=== PATIENT | male | born 1945 | race Two or more races ===

== ENCOUNTER 2024-04-24 15:19 | Inpatient (IN) | payer MEDICARE, OTHER ==
[~2024-04-24] VITALS: Ht 175.3 cm; Wt 73.9 kg
[2024-04-24 16:00] VITALS: BP 108/67; TEMP 98.1; O2SAT 95
[2024-04-24] MEDS ORDERED: CYCL5.5D3 OP (18:02)
[2024-04-24] MEDS ORDERED: DICL100G31 TP (18:02)
[2024-04-24] MEDS ORDERED: IBUP-1953 PO (18:02)
[2024-04-24] MEDS ORDERED: OLME1TAB16 PO (18:02)
[2024-04-24] MEDS ORDERED: MEMA10TA56 PO (18:02)
[2024-04-24] MEDS ORDERED: LIDO1ADH23 TP (18:02)
[2024-04-24] MEDS ORDERED: ERGO500040 PO ×2 (18:02)
[2024-04-24] MEDS ORDERED: AMLO-212 PO (18:02)
[2024-04-24] MEDS ORDERED: AMIO100T4 PO (18:02)
[2024-04-24] MEDS ORDERED: ATOR40TA PO (18:02)
[2024-04-24] MEDS ORDERED: DUTA0.5C37 PO (18:02)
[2024-04-24] MEDS ORDERED: BENA10TA74 PO (18:02)
[2024-04-24] MEDS ORDERED: TAMS-3 PO (18:02)
[2024-04-24] MEDS ORDERED: APIX5TAB4 PO (18:02)
[2024-04-24] MEDS ORDERED: ASPI-612 PO (18:02)
[2024-04-24] MEDS ORDERED: ERGOCALCIFEROL 50,000 UNIT CAPSULE PO SCH (19:00)
[2024-04-24] MEDS ORDERED: AMIODARONE HCL 200 MG TABLET PO SCH (20:30)
[2024-04-24] MEDS ORDERED: ACETAMINOPHEN 325 MG TABLET PO PRN (20:30)
[2024-04-24] MEDS ORDERED: REMEDY ESSENTIAL ZINC PASTE 113 GM TOP PRN (20:30)
[2024-04-24 20:51] VITALS: BP 114/74; TEMP 98.2; O2SAT 95
[2024-04-24] MEDS ORDERED: INSULIN REGULAR, HUMAN 1000 UNIT/10 ML VIAL SQ SCH (21:00)
[2024-04-24] MEDS: LORAZEPAM 1 MG TABLET PO ONE (23:08)
[2024-04-24] MEDS: ATORVASTATIN 40 MG TABLET PO SCH (23:08)
[2024-04-24] MEDS: IBUPROFEN 400 MG TABLET PO SCH (23:08)
[2024-04-25 06:14] VITALS: BP 134/71; TEMP 97.6; O2SAT 97
[2024-04-25] MEDS ORDERED: BLOOD SUGAR DIAGNOSTIC 1 EACH STRIP VI SCH ×2 (07:30→07:45)
[2024-04-25] MEDS ORDERED: DEXTROSE 50% 50 ML DISP.SYRIN IV PRN (07:30)
[2024-04-25] MEDS: BLOOD SUGAR DIAGNOSTIC 1 EACH STRIP VI SCH (07:38)
[2024-04-25] MEDS ORDERED: INSULIN REGULAR, HUMAN 1000 UNIT/10 ML VIAL SQ SCH ×2 (07:45→21:00)
[2024-04-25] MEDS: INSULIN REGULAR, HUMAN 1000 UNIT/10 ML VIAL SQ PRN (08:05)
[2024-04-25 08:08] LABS: BASOPHILS # (AUTO) 0.1 K/UL (0.0-0.2); BASOPHILS % (AUTO) 0.7 % (0.0-2.0); EOSINOPHILS # (AUTO) 0.2 K/uL (0.0-0.7); EOSINOPHILS % (AUTO) 3.1 % (0.0-7.0); HEMATOCRIT 39.7 % (36.7-47.1); HEMOGLOBIN 13.4 g/dL (12.5-16.3); LYMPHOCYTES # (AUTO) 2.2 K/uL (0.8-4.8); LYMPHOCYTES % (AUTO) 27.7 % (20.5-51.5); MEAN CORPUSCULAR HEMOGLOBIN 31.2 uug (23.8-33.4); MEAN CORPUSCULAR HGB CONC 34 g/dL (32.5-36.3); MEAN CORPUSCULAR VOLUME 92.7 fL (73.0-96.2); MONOCYTES # (AUTO) 0.7 K/uL (0.1-1.30); MONOCYTES % (AUTO) 8.3 % (0.0-11.0); NEUTROPHILS # (AUTO) 4.9 K/uL (1.8-8.9); NEUTROPHILS % (AUTO) 60.2 % (38.5-71.5); PLATELET COUNT (AUTO) 285 K/uL (152-348); RED BLOOD CELL COUNT(AUTO) 4.28 MIL/uL (4.06-5.63)
[2024-04-25 08:09] LABS: DIFFERENTIAL COMMENT 1
[2024-04-25 08:20] LABS: CALCIUM 8.9 mg/dL (8.5-10.1); CARBON DIOXIDE 29 mmol/L (21-32); CHLORIDE 101 mmol/L (98-107); GLUCOSE 154 mg/dL (74-106); PHOSPHOROUS 3.6 mg/dL (2.5-4.9); POTASSIUM 3.6 mmol/L (3.5-5.1); SODIUM SERUM 138 mmol/L (136-145); UREA NITROGEN, BLOOD 25 mg/dL (7-18)
[2024-04-25] MEDS ORDERED: LOSARTAN POTASSIUM 50 MG TABLET PO SCH (09:00)
[2024-04-25] MEDS ORDERED: APIXABAN 2.5 MG TABLET PO SCH (09:00)
[2024-04-25] MEDS: APIXABAN 5 MG TABLET PO SCH (09:58)
[2024-04-25] MEDS: DUTASTERIDE 0.5 MG CAPSULE PO SCH (09:59)
[2024-04-25] MEDS: ASPIRIN 325 MG TABLET PO SCH (09:59)
[2024-04-25] MEDS: TAMSULOSIN HCL 0.4 MG CAP.SR.24H PO SCH (10:00)
[2024-04-25] MEDS: AMIODARONE HCL 200 MG TABLET PO SCH (10:00)
[2024-04-25] MEDS: BENAZEPRIL HCL 10 MG TABLET PO SCH (10:00)
[2024-04-25] MEDS: MEMANTINE HCL 10 MG TABLET PO SCH (10:01)
[2024-04-25] MEDS: AMLODIPINE 5 MG TABLET PO SCH (10:01)
[2024-04-25] MEDS ORDERED: ACETAMINOPHEN 325 MG TABLET PO PRN (13:30)
[2024-04-25] MEDS ORDERED: IBUPROFEN 400 MG TABLET PO PRN (13:30)
[2024-04-25 15:32] VITALS: BP 111/57; TEMP 97.6; O2SAT 96
[2024-04-25 20:07] VITALS: BP 116/74; TEMP 98.1; O2SAT 94
[2024-04-26 06:59] VITALS: BP 131/79; TEMP 98; O2SAT 95
[2024-04-26] MEDS: HYDROCHLOROTHIAZIDE PO SCH (09:00)
[2024-04-26] MEDS: OLMESARTAN PO SCH (09:00)
[2024-04-26] MEDS ORDERED: RESTASIS 0.05% EACHEYE SCH (09:00)
[2024-04-26] MEDS: RESTASIS 0.05% EACHEYE SCH ×2 (09:12→18:04)
[2024-04-26 16:00] VITALS: BP 127/67; TEMP 98.1; O2SAT 96
[2024-04-26] MEDS: MEMANTINE 14 MG PO SCH (18:06)
[2024-04-26 20:07] VITALS: BP 113/58; TEMP 98.4; O2SAT 95
[2024-04-27 05:25] VITALS: BP 132/74; TEMP 98.3; O2SAT 95
[2024-04-27] MEDS: ERGOCALCIFEROL 50,000 UNIT CAPSULE PO SCH (09:33)
[2024-04-27 15:27] VITALS: BP 112/62; TEMP 97.7; O2SAT 95
[2024-04-27 20:00] VITALS: BP 115/69; TEMP 97.4; O2SAT 95
[2024-04-28] MEDS: GLUCERNA SHAKE 237 ML CAN PO SCH (09:10)
[2024-04-28 16:00] VITALS: BP 105/68; TEMP 98.4; O2SAT 95
[2024-04-28 20:00] VITALS: BP 108/69; TEMP 98.1; O2SAT 96
[2024-04-29 07:02] VITALS: BP 112/73; TEMP 97.3; O2SAT 96
[2024-04-29 16:20] VITALS: BP 108/69; TEMP 97.9; O2SAT 95
[2024-04-29] MEDS: BENAZEPRIL HCL 10 MG TABLET PO SCH (18:00)
[2024-04-29 20:01] VITALS: BP 115/71; TEMP 98.2; O2SAT 96
[2024-04-30 05:11] VITALS: BP 129/76; TEMP 98.3; O2SAT 97
[2024-04-30 06:52] LABS: BASOPHILS % (AUTO) 0.4 % (0.0-2.0); EOSINOPHILS # (AUTO) 0.1 K/uL (0.0-0.7); EOSINOPHILS % (AUTO) 0.9 % (0.0-7.0); HEMATOCRIT 37.7 % (36.7-47.1); LYMPHOCYTES # (AUTO) 2.6 K/uL (0.8-4.8); MEAN CORPUSCULAR HEMOGLOBIN 31.4 uug (23.8-33.4); MEAN CORPUSCULAR HGB CONC 35 g/dL (32.5-36.3); MEAN CORPUSCULAR VOLUME 91.2 fL (73.0-96.2); MONOCYTES % (AUTO) 9.5 % (0.0-11.0); NEUTROPHILS # (AUTO) 6.7 K/uL (1.8-8.9); NEUTROPHILS % (AUTO) 64.2 % (38.5-71.5); PLATELET COUNT (AUTO) 379 K/uL (152-348); RED BLOOD CELL COUNT(AUTO) 4.13 MIL/uL (4.06-5.63); WHITE BLOOD COUNT (AUTO) 10.5 K/uL (3.6-10.2)
[2024-04-30 06:57] LABS: CALCIUM 8.6 mg/dL (8.5-10.1); CARBON DIOXIDE 29 mmol/L (21-32); CHLORIDE 103 mmol/L (98-107); CREATININE 0.9 mg/dL (0.6-1.3); GLUCOSE 121 mg/dL (74-106); POTASSIUM 3.9 mmol/L (3.5-5.1); SODIUM SERUM 139 mmol/L (136-145); UREA NITROGEN, BLOOD 23 mg/dL (7-18)
[2024-04-30] MEDS: ASPIRIN EC 81 MG TABLET.DR PO SCH (08:53)
[2024-04-30 16:13] VITALS: BP 98/52; TEMP 98.6; O2SAT 97
[2024-04-30 19:37] VITALS: BP 105/66; TEMP 98.5; O2SAT 96
[2024-05-01 06:10] VITALS: BP 111/69; TEMP 98.1; O2SAT 96
[2024-05-01 07:30] LABS: BASOPHILS # (AUTO) 0.1 K/UL (0.0-0.2); BASOPHILS % (AUTO) 1.2 % (0.0-2.0); EOSINOPHILS # (AUTO) 0.1 K/uL (0.0-0.7); EOSINOPHILS % (AUTO) 1.2 % (0.0-7.0); HEMATOCRIT 37.1 % (36.7-47.1); HEMOGLOBIN 12.7 g/dL (12.5-16.3); LYMPHOCYTES # (AUTO) 2.5 K/uL (0.8-4.8); LYMPHOCYTES % (AUTO) 22.9 % (20.5-51.5); MEAN CORPUSCULAR HEMOGLOBIN 31.5 uug (23.8-33.4); MEAN CORPUSCULAR HGB CONC 34 g/dL (32.5-36.3); MEAN CORPUSCULAR VOLUME 92.5 fL (73.0-96.2); MONOCYTES % (AUTO) 9.4 % (0.0-11.0); NEUTROPHILS # (AUTO) 7.3 K/uL (1.8-8.9); NEUTROPHILS % (AUTO) 65.3 % (38.5-71.5); PLATELET COUNT (AUTO) 380 K/uL (152-348); RED BLOOD CELL COUNT(AUTO) 4.01 MIL/uL (4.06-5.63); WHITE BLOOD COUNT (AUTO) 11.1 K/uL (3.6-10.2)
[2024-05-01 07:37] VITALS: BP 112/83; TEMP 98.1; O2SAT 97
[2024-05-01 07:42] LABS: DIFFERENTIAL COMMENT 1
[2024-05-01 16:00] VITALS: BP 107/53; TEMP 98.4; O2SAT 96
[2024-05-01 20:00] VITALS: BP 122/72; TEMP 97.1; O2SAT 95
[2024-05-01] MEDS: LORAZEPAM 0.5 MG TABLET PO PRN (22:23)
[2024-05-02 06:00] VITALS: BP 107/68; TEMP 97.9; O2SAT 96
[2024-05-02 07:18] LABS: BASOPHILS # (AUTO) 0.1 K/UL (0.0-0.2); BASOPHILS % (AUTO) 0.7 % (0.0-2.0); EOSINOPHILS # (AUTO) 0.1 K/uL (0.0-0.7); EOSINOPHILS % (AUTO) 1.1 % (0.0-7.0); HEMATOCRIT 37.2 % (36.7-47.1); HEMOGLOBIN 12.9 g/dL (12.5-16.3); LYMPHOCYTES # (AUTO) 2.4 K/uL (0.8-4.8); LYMPHOCYTES % (AUTO) 23.4 % (20.5-51.5); MEAN CORPUSCULAR HEMOGLOBIN 31.7 uug (23.8-33.4); MEAN CORPUSCULAR HGB CONC 35 g/dL (32.5-36.3); MEAN CORPUSCULAR VOLUME 91.7 fL (73.0-96.2); MONOCYTES # (AUTO) 0.8 K/uL (0.1-1.30); MONOCYTES % (AUTO) 8.1 % (0.0-11.0); NEUTROPHILS # (AUTO) 6.8 K/uL (1.8-8.9); NEUTROPHILS % (AUTO) 66.7 % (38.5-71.5); PLATELET COUNT (AUTO) 397 K/uL (152-348); RED BLOOD CELL COUNT(AUTO) 4.06 MIL/uL (4.06-5.63); RED CELL DISTRIBUTION WIDTH 12.7 % (12.1-16.2); WHITE BLOOD COUNT (AUTO) 10.2 K/uL (3.6-10.2)
[2024-05-02 07:23] LABS: DIFFERENTIAL COMMENT 1
[2024-05-02 08:00] LABS: THYROID STIMULATING HORMONE 3.107 mIU/mL (0.358-3.740)
[2024-05-02 08:12] LABS: ALANINE AMINOTRANSFERASE 41 U/L (16-63); ALKALINE PHOSPHATASE 107 U/L (50-136); ASPARTATE AMINOTRANSFERASE 14 U/L (15-37); BILIRUBIN,TOTAL 0.8 mg/dL (0.2-1.0); CALCIUM 8.7 mg/dL (8.5-10.1); CARBON DIOXIDE 32 mmol/L (21-32); CHLORIDE 101 mmol/L (98-107); CHOLESTEROL 135 mg/dL (<200); CREATININE 1.1 mg/dL (0.6-1.3); GLUCOSE 143 mg/dL (74-106); HDL CHOLESTEROL 49 mg/dL (40-60); PHOSPHOROUS 3.5 mg/dL (2.5-4.9); POTASSIUM 3.9 mmol/L (3.5-5.1); SODIUM SERUM 138 mmol/L (136-145); TOTAL PROTEIN, SERUM 6.5 g/dL (6.4-8.2); TRIGLYCERIDES 69 MG/DL (30-150); UREA NITROGEN, BLOOD 25 mg/dL (7-18)
[2024-05-02 16:29] VITALS: BP 98/58; TEMP 98.3; O2SAT 95
[2024-05-02 23:08] VITALS: BP 109/67; TEMP 98.3; O2SAT 94
[2024-05-03 06:11] VITALS: BP 134/91; TEMP 97.9; O2SAT 95
[2024-05-03 15:30] VITALS: BP 102/67; TEMP 98.3; O2SAT 95
[2024-05-03 20:16] VITALS: BP 110/67; TEMP 97.9; O2SAT 93
[2024-05-04 07:01] VITALS: BP 118/66; TEMP 98; O2SAT 94
[2024-05-04 16:12] VITALS: BP 113/62; TEMP 98; O2SAT 95
[2024-05-04 20:12] VITALS: BP 103/67; TEMP 98.5; O2SAT 94
[2024-05-05 05:40] VITALS: BP 124/82; TEMP 98.4; O2SAT 94
[2024-05-05 16:10] VITALS: BP 110/65; TEMP 98.1; O2SAT 97
[2024-05-05] MEDS: METFORMIN XR 500 MG TAB.SR.24H PO SCH (18:37)
[2024-05-05 20:00] VITALS: BP 116/69; TEMP 98.2; O2SAT 95
[2024-05-05] MEDS: TAMSULOSIN HCL 0.4 MG CAP.SR.24H PO SCH (21:03)
[2024-05-05] MEDS: ATORVASTATIN 20 MG TABLET PO SCH (21:03)
[2024-05-06 06:00] VITALS: BP 116/65; TEMP 98.1; O2SAT 96
[2024-05-06 07:39] LABS: BASOPHILS # (AUTO) 0.1 K/UL (0.0-0.2); BASOPHILS % (AUTO) 0.6 % (0.0-2.0); EOSINOPHILS # (AUTO) 0.1 K/uL (0.0-0.7); EOSINOPHILS % (AUTO) 1.2 % (0.0-7.0); HEMATOCRIT 38.5 % (36.7-47.1); HEMOGLOBIN 13.3 g/dL (12.5-16.3); LYMPHOCYTES # (AUTO) 2.4 K/uL (0.8-4.8); LYMPHOCYTES % (AUTO) 24.4 % (20.5-51.5); MEAN CORPUSCULAR HEMOGLOBIN 31.6 uug (23.8-33.4); MEAN CORPUSCULAR HGB CONC 35 g/dL (32.5-36.3); MEAN CORPUSCULAR VOLUME 91.4 fL (73.0-96.2); MONOCYTES # (AUTO) 0.7 K/uL (0.1-1.30); MONOCYTES % (AUTO) 7.6 % (0.0-11.0); NEUTROPHILS # (AUTO) 6.5 K/uL (1.8-8.9); NEUTROPHILS % (AUTO) 66.2 % (38.5-71.5); PLATELET COUNT (AUTO) 448 K/uL (152-348); RED BLOOD CELL COUNT(AUTO) 4.21 MIL/uL (4.06-5.63); RED CELL DISTRIBUTION WIDTH 12.9 % (12.1-16.2); WHITE BLOOD COUNT (AUTO) 9.8 K/uL (3.6-10.2)
[2024-05-06 07:49] LABS: DIFFERENTIAL COMMENT 1
[2024-05-06 07:56] LABS: ALANINE AMINOTRANSFERASE 47 U/L (16-63); ALBUMIN 3.3 g/dL (3.4-5.0); ALKALINE PHOSPHATASE 112 U/L (50-136); ASPARTATE AMINOTRANSFERASE 14 U/L (15-37); BILIRUBIN,TOTAL 0.9 mg/dL (0.2-1.0); CALCIUM 9.1 mg/dL (8.5-10.1); CARBON DIOXIDE 29 mmol/L (21-32); CHLORIDE 103 mmol/L (98-107); CREATININE 1.1 mg/dL (0.6-1.3); GLUCOSE 157 mg/dL (74-106); PHOSPHOROUS 3.9 mg/dL (2.5-4.9); POTASSIUM 3.6 mmol/L (3.5-5.1); SODIUM SERUM 141 mmol/L (136-145); TOTAL PROTEIN, SERUM 6.8 g/dL (6.4-8.2); UREA NITROGEN, BLOOD 29 mg/dL (7-18)
[2024-05-06 15:41] VITALS: BP 107/72; TEMP 98.1; O2SAT 97
[2024-05-06 20:00] VITALS: BP 102/61; TEMP 98.2; O2SAT 96
[2024-05-07 06:00] VITALS: BP 117/73; TEMP 98; O2SAT 97
[2024-05-07 07:38] LABS: BASOPHILS # (AUTO) 0.1 K/UL (0.0-0.2); BASOPHILS % (AUTO) 0.9 % (0.0-2.0); EOSINOPHILS # (AUTO) 0.1 K/uL (0.0-0.7); EOSINOPHILS % (AUTO) 1.5 % (0.0-7.0); HEMATOCRIT 37.1 % (36.7-47.1); HEMOGLOBIN 12.8 g/dL (12.5-16.3); LYMPHOCYTES # (AUTO) 2.2 K/uL (0.8-4.8); LYMPHOCYTES % (AUTO) 25.7 % (20.5-51.5); MEAN CORPUSCULAR HEMOGLOBIN 31.7 uug (23.8-33.4); MEAN CORPUSCULAR HGB CONC 35 g/dL (32.5-36.3); MEAN CORPUSCULAR VOLUME 91.6 fL (73.0-96.2); MONOCYTES # (AUTO) 0.6 K/uL (0.1-1.30); MONOCYTES % (AUTO) 7.1 % (0.0-11.0); NEUTROPHILS # (AUTO) 5.7 K/uL (1.8-8.9); NEUTROPHILS % (AUTO) 64.8 % (38.5-71.5); PLATELET COUNT (AUTO) 436 K/uL (152-348); RED BLOOD CELL COUNT(AUTO) 4.06 MIL/uL (4.06-5.63); RED CELL DISTRIBUTION WIDTH 12.6 % (12.1-16.2); WHITE BLOOD COUNT (AUTO) 8.7 K/uL (3.6-10.2)
[2024-05-07 07:39] LABS: DIFFERENTIAL COMMENT 1
[2024-05-07 08:43] LABS: C-REACTIVE PROTEIN 0.38 mg/dL (0.00-0.30)
[2024-05-07 09:28] LABS: *RHEUMATOID FACTOR SCREEN NEGATIVE (NEGATIVE)
[2024-05-07 11:18] VITALS: BP 110/67; TEMP 98; O2SAT 95
[2024-05-08 13:09] LABS: *ANTI-SCLERODERMA-70 AB <0.2 AI (0.0-0.9); *RNP ANTIBODIES <0.2 AI (0.0-0.9); *SJOGREN'S ANTI-SS-A <0.2 AI (0.0-0.9); *SJOGREN'S ANTI-SS-B <0.2 AI (0.0-0.9); *SMITH ANTIBODIES <0.2 AI (0.0-0.9); ANTI-DNA(DS) AB, QN 1 IU/mL (0-9); ANTI-NUCLEAR AB DIRECT Negative (Negative)
== END 2024-05-07 15:05 | disposition home health service (06) | DRG 948 ==
PROVIDERS: ADMIT Physical Medicine & Rehabilitation Pain Medicine; ATTEND Physical Medicine & Rehabilitation Pain Medicine
DX: R53.1 Weakness (principal); R17 Unspecified jaundice; N39.0 Urinary tract infection, site not specified; E44.0 Moderate protein-calorie malnutrition; I48.20 Chronic atrial fibrillation, unspecified; K86.2 Cyst of pancreas; E11.9 Type 2 diabetes mellitus without complications; E78.5 Hyperlipidemia, unspecified; G93.89 Other specified disorders of brain; I10 Essential (primary) hypertension; K40.90 Unilateral inguinal hernia, without obstruction or gangrene, not specified as recurrent; N40.0 Benign prostatic hyperplasia without lower urinary tract symptoms; R29.6 Repeated falls; Z86.73 Personal history of transient ischemic attack (TIA), and cerebral infarction without residual deficits; Z79.01 Long term (current) use of anticoagulants; D75.839 Thrombocytosis, unspecified; R91.8 Other nonspecific abnormal finding of lung field; E88.09 Other disorders of plasma-protein metabolism, not elsewhere classified; F01.50 Vascular dementia, unspecified severity, without behavioral disturbance, psychotic disturbance, mood disturbance, and anxiety; K44.9 Diaphragmatic hernia without obstruction or gangrene; N20.0 Calculus of kidney; N28.1 Cyst of kidney, acquired; Z91.81 History of falling; R26.81 Unsteadiness on feet; G30.9 Alzheimer's disease, unspecified; F02.80 Dementia in other diseases classified elsewhere, unspecified severity, without behavioral disturbance, psychotic disturbance, mood disturbance, and anxiety
CPT/HCPCS: 36415; 82652; 83735; 84100; 84443; 85025; 86038; 86140; 86430; 93005; 97535-GO-CO; A4663; J1815